=== PATIENT | male | born 1960 | race Caucasian/White ===

== ENCOUNTER 2020-08-28 10:04 | Emergency (ER) | payer SELFPAY ==
[~2020-08-28] VITALS: Ht 172.7 cm; Wt 68.0 kg
[2020-08-28 10:04] VITALS: BP_SYST 126
[~2020-08-28 10:04] MED LIST: FOLI-43 PO; FOLI0.8C PO; LEVO500T89 PO; METR500T PO; MULT-1117 PO; THIA250T3 PO
[2020-08-28] MEDS ORDERED: CEPH250C PO (10:33)
[2020-08-28 10:42] VITALS: BP_SYST 125
== END 2020-08-28 10:42 | disposition home or self-care (01) ==
LOC: SED 10:04
DX: S50.312A Abrasion of left elbow, initial encounter (principal); L08.9 Local infection of the skin and subcutaneous tissue, unspecified; Z79.899 Other long term (current) drug therapy; Y04.0XXA Assault by unarmed brawl or fight, initial encounter; Y93.89 Activity, other specified; Y92.89 Other specified places as the place of occurrence of the external cause; Y99.8 Other external cause status
CPT/HCPCS: 99283

== ENCOUNTER 2020-09-25 00:22 | Emergency (ER) | payer SELFPAY ==
[~2020-09-25] VITALS: Ht 165.1 cm; Wt 59.0 kg
[~2020-09-25 00:22] MED LIST changes: +CEPH250C PO
[2020-09-25 00:36] VITALS: BP_SYST 129
[2020-09-25] MEDS ORDERED: CLINDAMYCIN 900 MG in D5W 100 ML IV ONE (01:00)
[2020-09-25] MEDS ORDERED: MORPHINE 4 MG INJ. 4 MG/ML VIAL IVP ONE (01:00)
[2020-09-25] MEDS ORDERED: ONDANSETRON HCL 4 MG/2 ML VIAL IVP ONE (01:00)
[2020-09-25] MEDS ORDERED: cefTRIAXone 2 GM VIAL ONE (01:25)
[2020-09-25] MEDS ORDERED: DIPH-TET-PERTUS Vaccine 0.5 ML VIAL (ADACEL) I.M. ONE ×2 (01:27→01:30)
[2020-09-25] MEDS ORDERED: CLINDAMYCIN 900 mg/50mL D5W 50 ML IV ONE ×2 (01:27→01:30)
[2020-09-25 01:41] LABS: CALCIUM 8.6 mg/dL (8.4-11.0); CREATININE 0.9 mg/dL (0.55-1.30); POTASSIUM 4.2 mmol/L (3.5-5.1)
[2020-09-25] MEDS ORDERED: NACL 0.9% 1,000 ML IV ONE (01:45)
[2020-09-25 01:47] LABS: ALBUMIN 2.8 g/dL (3.4-4.8); TOTAL BILIRUBIN 0.8 mg/dL (0.0-1.0)
[2020-09-25 01:58] LABS: BASOPHILS % (AUTO) 0.8 % (0.0-2.0); EOSINOPHILS # (AUTO) 0.1 K/uL (0.0-0.4); EOSINOPHILS % (AUTO) 1.8 % (0.0-4.0); HEMATOCRIT 47.1 % (36-54); HEMOGLOBIN 16.1 g/dL (14.0-18.0); LYMPHOCYTES # (AUTO) 1.8 K/uL (1.0-5.5); LYMPHOCYTES % (AUTO) 32.4 % (20.5-51.5); MEAN CORPUSCULAR HEMOGLOBIN 37 pg (27-31); MEAN CORPUSCULAR HGB CONC 34 % (32-36); MEAN CORPUSCULAR VOLUME 108 fL (79.0-98.0); MONOCYTES # (AUTO) 0.6 K/uL (0.0-1.0); MONOCYTES % (AUTO) 10.5 % (1.7-9.3); NEUTROPHILS % (AUTO) 54.5 % (40.0-70.0); PLATELET COUNT (AUTO) 192 K/uL (130-430); RED BLOOD CELL COUNT(AUTO) 4.35 MIL/uL (4.2-6.2); RED CELL DISTRIBUTION WIDTH 14.2 % (9.0-15.0); WHITE BLOOD COUNT (AUTO) 5.6 K/uL (4.8-10.8)
[2020-09-25] MEDS ORDERED: LIDOCAINE MPF 2% 5mL VIAL INJ ONE (02:15)
[2020-09-25] MEDS ORDERED: LIDOCAINE 1%, 20 ML MDV 20 ML ONE (02:17)
[2020-09-25] MEDS ORDERED: BACITRACIN 1 GM OINT TP ONE ×2 (02:40→03:00)
[2020-09-25] MEDS ORDERED: IBUP-1971 PO (02:58)
[2020-09-25] MEDS ORDERED: CLIN300C12 PO (02:58)
[2020-09-25] MEDS ORDERED: ACET1TAB23 PO (02:58)
[2020-09-25 03:20] VITALS: BP_SYST 129
== END 2020-09-25 03:20 | disposition home or self-care (01) ==
LOC: SED 00:22
DX: S67.191A Crushing injury of left index finger, initial encounter (principal); L03.012 Cellulitis of left finger; Z79.899 Other long term (current) drug therapy; X58.XXXA Exposure to other specified factors, initial encounter; Y93.89 Activity, other specified; Y92.89 Other specified places as the place of occurrence of the external cause; Y99.8 Other external cause status
CPT/HCPCS: 10060; 11760; 36415; 73140; 80053; 83605; 85025; 87040; 87070; 87186; 90471; 90715; 96365; 96367; 96375; 99285; J0696; J2001; J2270; J2405; J3490; 87075-TC; 99284

== ENCOUNTER 2021-08-15 20:57 | Emergency (ER) | payer SELFPAY ==
[~2021-08-15] VITALS: Ht 165.1 cm; Wt 65.8 kg
[~2021-08-15 20:57] MED LIST changes: +CLIN-142 PO; +IBUP-1971 PO; -LEVO500T89 PO; +LEVO500T90 PO
[2021-08-15 21:03] VITALS: BP_SYST 119
[2021-08-15] MEDS ORDERED: PROCHLORPERAZINE EDISYLATE 10 MG/2 ML VIAL IVP ONE (23:15)
[2021-08-15] MEDS ORDERED: MORPHINE 4 MG INJ. 4 MG/ML VIAL IVP ONE (23:15)
[2021-08-15] MEDS ORDERED: PANTOPRAZOLE SODIUM 40 MG/VIAL (PROTONIX) IVP ONE (23:15)
[2021-08-15] MEDS ORDERED: NACL 0.9% 500 ML IV ONE (23:15)
[2021-08-15 23:34] LABS: BASOPHILS % (AUTO) 0.8 % (0.0-2.0); EOSINOPHILS # (AUTO) 0.1 K/uL (0.0-0.4); EOSINOPHILS % (AUTO) 1.4 % (0.0-4.0); HEMOGLOBIN 14.9 g/dL (14.0-18.0); LYMPHOCYTES # (AUTO) 1.2 K/uL (1.0-5.5); MEAN CORPUSCULAR HEMOGLOBIN 38 pg (27-31); MEAN CORPUSCULAR HGB CONC 34 % (32-36); MEAN CORPUSCULAR VOLUME 111 fL (79.0-98.0); MONOCYTES # (AUTO) 0.5 K/uL (0.0-1.0); MONOCYTES % (AUTO) 9.9 % (1.7-9.3); NEUTROPHILS # (AUTO) 3.4 K/uL (1.8-7.7); NEUTROPHILS % (AUTO) 64.9 % (40.0-70.0); PLATELET COUNT (AUTO) 160 K/uL (130-430); RED BLOOD CELL COUNT(AUTO) 3.95 MIL/uL (4.2-6.2); RED CELL DISTRIBUTION WIDTH 14.3 % (9.0-15.0); WHITE BLOOD COUNT (AUTO) 5.2 K/uL (4.8-10.8)
[2021-08-15 23:39] LABS: CALCIUM 7.7 mg/dL (8.4-11.0); CREATININE 0.73 mg/dL (0.55-1.30); POTASSIUM 3.8 mmol/L (3.5-5.1)
[2021-08-15 23:45] LABS: ALBUMIN 2.4 g/dL (3.4-4.8); TOTAL BILIRUBIN 1.3 mg/dL (0.0-1.0)
[2021-08-16] MEDS ORDERED: SPIRONOLACTONE 25 MG TABLET (ALDACTONE) PO ONE (02:00)
[2021-08-16] MEDS ORDERED: PANT20TA2 PO (02:07)
[2021-08-16] MEDS ORDERED: SPIR25TA PO (02:07)
[2021-08-16] MEDS ORDERED: METO5TAB86 PO (02:07)
[2021-08-16 02:27] VITALS: BP_SYST 128
== END 2021-08-16 02:21 | disposition home or self-care (01) ==
LOC: SED 20:57
DX: R18.8 Other ascites (principal); K72.90 Hepatic failure, unspecified without coma; F10.20 Alcohol dependence, uncomplicated; R10.13 Epigastric pain; Z79.899 Other long term (current) drug therapy; Y90.9 Presence of alcohol in blood, level not specified
CPT/HCPCS: 36415; 80053; 83690; 85025; 96361; 96374; 96375; 99284; C9113; J0780; J2270; J7030

== ENCOUNTER 2022-03-29 13:02 | Inpatient (IN) | payer OTHER ==
[~2022-03-29] VITALS: Ht 172.7 cm; Wt 70.3 kg
[~2022-03-29 13:02] MED LIST changes: +LEVO-62 PO; -LEVO500T90 PO; +METO5TAB86 PO; +PANT20TA2 PO; +SPIR25TA PO
[2022-03-29 13:11] VITALS: BP_SYST 107
--- NOTE | 2022-03-29 13:14 | NUR ---
Placed in room 06 . Placed on rolls mill operator, blood pressure machine and pulse oximeter. To gown for exam. Side rails up. Report given to LUIS CABRERA
--- NOTE | 2022-03-29 13:23 | NUR ---
61 YEARS OLD MALE PRESENTS TO ER C/O ABD PAIN ASCITES HISTORY OF ETOH.
[2022-03-29] MEDS ORDERED: MORPHINE 4 MG INJ. 4 MG/ML VIAL IVP ONE (16:15)
--- NOTE | 2022-03-29 16:38 | NUR ---
TALKED TO DR HACKETT NEW ORDER OBTAINED.
[2022-03-29 16:40] LABS: BASOPHILS % (AUTO) 0.3 % (0.0-2.0); EOSINOPHILS # (AUTO) 0.1 K/uL (0.0-0.4); EOSINOPHILS % (AUTO) 0.7 % (0.0-4.0); HEMATOCRIT 41.8 % (36-54); HEMOGLOBIN 14.5 g/dL (14.0-18.0); LYMPHOCYTES # (AUTO) 1.3 K/uL (1.0-5.5); LYMPHOCYTES % (AUTO) 18.4 % (20.5-51.5); MEAN CORPUSCULAR HEMOGLOBIN 36 pg (27-31); MEAN CORPUSCULAR HGB CONC 35 % (32-36); MEAN CORPUSCULAR VOLUME 103 fL (79.0-98.0); MONOCYTES # (AUTO) 0.9 K/uL (0.0-1.0); NEUTROPHILS # (AUTO) 4.9 K/uL (1.8-7.7); NEUTROPHILS % (AUTO) 68.6 % (40.0-70.0); PLATELET COUNT (AUTO) 148 K/uL (130-430); RED BLOOD CELL COUNT(AUTO) 4.08 MIL/uL (4.2-6.2); RED CELL DISTRIBUTION WIDTH 14.7 % (9.0-15.0); WHITE BLOOD COUNT (AUTO) 7.1 K/uL (4.8-10.8)
[2022-03-29] MEDS ORDERED: ALBMDI INH (16:47)
[2022-03-29] MEDS ORDERED: ONDA-8 TL (16:47)
[2022-03-29] MEDS ORDERED: VITD2000 PO (16:47)
[2022-03-29] MEDS ORDERED: FURO-149 PO (16:47)
[2022-03-29 16:49] LABS: CALCIUM 8.3 mg/dL (8.4-11.0); CREATININE 0.88 mg/dL (0.55-1.30)
[2022-03-29] MEDS ORDERED: FAMO-132 PO (16:49)
[2022-03-29 16:55] LABS: ALBUMIN 2.1 g/dL (3.4-4.8); INR 1.3 (0.80-1.20); PROTHROMBIN TIME 13.3 SECS (9.5-12.5); TOTAL BILIRUBIN 3.8 mg/dL (0.0-1.0)
--- NOTE | 2022-03-29 18:18 | NUR ---
Admit bed requested Patient will be admitted to care of . Admitted to unit. Diagnosis Inpatient (Yes or No) Observation (Yes or No) n Orientation concerns or request close to nursing station (Yes or No) Covid Status On vent or bipap Isolation requirements Needs a sitter From Home (Yes or if No enter name of facility) Requires Dialysis (Yes or No) Med Rec Completed (Yes of No)
--- NOTE | 2022-03-29 19:06 | NUR ---
PATIENT RESTING NO ACUTE CHANGES WILL TRANSFER TO [facility] AT SHIFT CHANGE.
--- NOTE | 2022-03-29 19:16 | NUR ---
PT PLACED ON 2LPM 02 AFTER SHOWING 02SAT OF 88% ON NASAL CANNULA
--- NOTE | 2022-03-29 19:40 | NUR ---
Received report from LUIS Artis; assuming care at this time.
--- NOTE | 2022-03-29 19:45 | NUR ---
Patient A/Ox4, VSS, ambulatory, resp even and unlabored. Patient lying in bed with safety precautions in place and connected to monitor. Patient's at bedside. Nad noted at this time.
--- NOTE | 2022-03-29 20:30 | NUR ---
ADMISSION NOTE Received patient from ER via gurney. Patient admitted with diagnosis of ASCITES, CIRRHOSIS. Patient is awake, alert, oriented X 4. Patient oriented to hospital room, call light, toileting, pain management and safety-teach back done. Patient informed that that their room number is 118B. Personal belongings checked and Belongings List documented. Call light within reach.
--- NOTE | 2022-03-29 20:30 | NUR ---
Patient will be admitted to care of [facility]. Admitted to Med Surg unit. Will go to room 118 B. Belongings list completed. Complete and up to date summary report printed. SBAR report given to LUIS Hess at bedside with opportunity for questions.
[2022-03-29 20:59] VITALS: BP_SYST 116
[2022-03-29] MEDS: NORMAL SALINE 5 ML DISP.SYRIN IVF SCH (21:45)
--- NOTE | 2022-03-29 22:34 | NUR ---
CONSULTATION PAGED/CALLED Reason for Consultation: CIRRHOSIS Person Who was Notified: BALDOMERO Consulting Physician: IMANI Electrocardiographic Technician Specialty: Ordering Physician: ROXANN
--- NOTE | 2022-03-30 | NUR ---
Patient was provided education that he was to be NPO till after scheduled procedure. Patient was able to verbalized understanding.
[2022-03-30 01:30] VITALS: BP_SYST 103
--- NOTE | 2022-03-30 06:53 | NUR ---
Patient is in bed resting no s/s of distress is noted at this time. Chest rise is even with auditory wheezing can be herd and patient is easily aroused, able to make needs known, with call light within reach. Patient remains NPO, is stable and all current shift needs have been met. Will differ further care to AM shift nurse for continuity of care.
[2022-03-30 07:05] LABS: BASOPHILS % (AUTO) 0.4 % (0.0-2.0); EOSINOPHILS # (AUTO) 0.1 K/uL (0.0-0.4); EOSINOPHILS % (AUTO) 1.7 % (0.0-4.0); HEMATOCRIT 38.2 % (36-54); HEMOGLOBIN 13.2 g/dL (14.0-18.0); LYMPHOCYTES # (AUTO) 1.5 K/uL (1.0-5.5); LYMPHOCYTES % (AUTO) 21.8 % (20.5-51.5); MEAN CORPUSCULAR HEMOGLOBIN 36 pg (27-31); MEAN CORPUSCULAR HGB CONC 35 % (32-36); MEAN CORPUSCULAR VOLUME 103 fL (79.0-98.0); MONOCYTES % (AUTO) 15.3 % (1.7-9.3); NEUTROPHILS # (AUTO) 4.1 K/uL (1.8-7.7); NEUTROPHILS % (AUTO) 60.8 % (40.0-70.0); PLATELET COUNT (AUTO) 139 K/uL (130-430); RED CELL DISTRIBUTION WIDTH 14.5 % (9.0-15.0); WHITE BLOOD COUNT (AUTO) 6.7 K/uL (4.8-10.8)
[2022-03-30 07:13] LABS: CALCIUM 7.7 mg/dL (8.4-11.0); CREATININE 0.93 mg/dL (0.55-1.30)
[2022-03-30 07:18] LABS: ALBUMIN 1.9 g/dL (3.4-4.8); TOTAL BILIRUBIN 2.4 mg/dL (0.0-1.0)
[2022-03-30 07:20] LABS: INR 1.3 (0.80-1.20); PROTHROMBIN TIME 12.9 SECS (9.5-12.5)
--- NOTE | 2022-03-30 07:20 | NUR ---
OPENING NOTE PT IN BED, RESTING. DENIES ANY ACUTE DISTRESS. IV SITE REMAIN PATENT AND INTACT. PT IS ON 2L O2 VIA NC, WHEEZING NOTED, DENIES SOB. ENCOURAGED PT TO USE CALL LIGHT FOR ASSISTANCE. BED IS LOCKED AND AT LOW POSITION. WILL CONT TO MONITOR.
[2022-03-30 08:00] VITALS: BP_SYST 115
[2022-03-30] MEDS ORDERED: SPIRONOLACTONE 50 MG TABLET (ALDACTONE) PO ONE (10:00)
[2022-03-30] MEDS ORDERED: FUROSEMIDE 20 MG TABLET PO ONE (10:00)
--- NOTE | 2022-03-30 11:30 | NUR ---
NOTES; CANCELLED PARACENTESIS BECAUSE " TOO SMALL FOR PARACENTESIS" AFTER ABDOMINAL US.
--- NOTE | 2022-03-30 12:30 | NUR ---
PAGED DR. DIALLO
--- NOTE | 2022-03-30 12:46 | NUR ---
PAGED DR. HACKETT.
--- NOTE | 2022-03-30 13:00 | NUR ---
NOTES; MADE MADE AWARE OF CANCELLING PARACENTESIS. RESUME PREVIOUS DIET PER .
[2022-03-30] MEDS ORDERED: IPRATROPIUM/ALBUTEROL SULFATE 3 ML AMPUL.NEB (DUONEB) INH PRN (14:45)
[2022-03-30] MEDS ORDERED: CHOLECALCIFEROL (VITAMIN D3) 2,000 UNIT TABLET PO SCH (15:00)
[2022-03-30] MEDS ORDERED: POTASSIUM CHLORIDE IV ONE (15:15)
[2022-03-30] MEDS ORDERED: LIDOCAINE JECT IV ONE (15:15)
[2022-03-30] MEDS ORDERED: VITAMIN D3 50000 UNIT PO SCH (15:15)
[2022-03-30] MEDS ORDERED: NS IV ONE (15:15)
[2022-03-30 16:03] LABS: BASOPHILS % (AUTO) 0.5 % (0.0-2.0); EOSINOPHILS # (AUTO) 0.1 K/uL (0.0-0.4); EOSINOPHILS % (AUTO) 1.3 % (0.0-4.0); HEMATOCRIT 37.8 % (36-54); HEMOGLOBIN 12.9 g/dL (14.0-18.0); LYMPHOCYTES # (AUTO) 1.2 K/uL (1.0-5.5); LYMPHOCYTES % (AUTO) 18.2 % (20.5-51.5); MEAN CORPUSCULAR HEMOGLOBIN 35 pg (27-31); MEAN CORPUSCULAR HGB CONC 34 % (32-36); MEAN CORPUSCULAR VOLUME 103 fL (79.0-98.0); MONOCYTES # (AUTO) 0.9 K/uL (0.0-1.0); MONOCYTES % (AUTO) 13.8 % (1.7-9.3); NEUTROPHILS # (AUTO) 4.3 K/uL (1.8-7.7); NEUTROPHILS % (AUTO) 66.2 % (40.0-70.0); PLATELET COUNT (AUTO) 134 K/uL (130-430); RED BLOOD CELL COUNT(AUTO) 3.68 MIL/uL (4.2-6.2); RED CELL DISTRIBUTION WIDTH 14.7 % (9.0-15.0); WHITE BLOOD COUNT (AUTO) 6.5 K/uL (4.8-10.8)
[2022-03-30 16:09] LABS: CALCIUM 8.1 mg/dL (8.4-11.0); CREATININE 0.93 mg/dL (0.55-1.30)
--- NOTE | 2022-03-30 16:40 | NUR ---
MARJAN GUADALUPE,STRAW HAT MACHINE OPERATOR FOR PAIN MEDICATION, RECEIVED NEW ORDER.
[2022-03-30] MEDS: NORMAL SALINE 5 ML DISP.SYRIN IVF SCH ×2 (16:48→20:56)
[2022-03-30] MEDS: HYDROcodone/ACETAMIN 5-325 MG TAB (NORCO/ VICODIN) PO PRN (16:51)
--- NOTE | 2022-03-30 17:20 | NUR ---
COLLECTED URINE CULTURE, SENT TO LAB
[2022-03-30 17:42] LABS: BILIRUBIN,URINE 2+ (NEGATIVE); BLOOD, URINE NEGATIVE (NEGATIVE); CLARITY/URINE CLEAR (CLEAR); COLOR,URINE BROWN (YELLOW); GLUCOSE,URINE TRACE (NEGATIVE); KETONES,URINE TRACE (NEGATIVE); LEUKOCYTE ESTERASE ,URINE NEGATIVE (NEGATIVE); NITRITE, URINE POSITIVE (NEGATIVE); PH,URINE 5.5 (5.0-8.0); PROTEIN URINE TRACE (NEGATIVE)
[2022-03-30 17:43] LABS: UROBILINOGEN,URINE >=8 (0.2-1.0)
[2022-03-30 17:56] LABS: BACTERIA,URINE RARE /HPF (None Seen); MUCUS,URINE 1+ /LPF (None Seen); RBC,URINE 0-3 /HPF (0-3)
--- NOTE | 2022-03-30 19:00 | NUR ---
CLOSING NOTE PT IN BED, WATCHING TV WITH HIS SIGNIFICANT OTHER. DENIES ANY ACUTE DISTRESS. IV RUNNING WITH SITE REMAIN PATENT AND INTACT. PT IS ON 2L O2 VIA NC, WHEEZING NOTED, DENIES SOB. ENCOURAGED PT TO USE CALL LIGHT FOR ASSISTANCE. BED IS LOCKED AND AT LOW POSITION. ENDORSED CARE TO ORACLE EBS DEVELOPER RN.
[2022-03-30 20:00] VITALS: BP_SYST 107
[2022-03-30] MEDS: METHYLPREDNISOLONE SOD SUCC 40 MG/ML VIAL IVP SCH (20:56)
[2022-03-31 01:30] VITALS: BP_SYST 99
--- NOTE | 2022-03-31 03:14 | NUR ---
2000 OPENING NOTE: Patient received no s/s of distress is noted at this time, chest rise is even and unlabored. Patient is AA&Ox4 able to make needs known with significant other at bedside with call light within reach. Will resume care and continue to monitor throughout the shift. 2200 Patient was assessed and received all scheduled 2100 medications. Patient denies any pain or distress at this time. Patient remains on 2L via NC and is tolerating it well at this time. PIV is noted and is infusing KCL as ordered for a x1 dose. Safety measures are in place as per protocol and patient has call light within reach. Will continue to monitor. 0000 Patient is in bed resting no s/s of distress is noted at this time. Patient is easily aroused. Will continue to monitor.
[2022-03-31] MEDS: NORMAL SALINE 5 ML DISP.SYRIN IVF SCH ×3 (05:22→21:43)
[2022-03-31] MEDS: METHYLPREDNISOLONE SOD SUCC 40 MG/ML VIAL IVP SCH ×3 (05:22→21:35)
--- NOTE | 2022-03-31 07:30 | NUR ---
OPENING NOTE PT IN BED,RESTING WATCHING TV. DENIES ANY PAIN OR DISCOMFORT NOTED. IV SITE REMAIN INTACT.NO S/S OF INFILTRATION OR INFECTION NOTED. BED IS LOCKED AND AT LOW POSITION. ENCOURAGED PT TO USE CALL LIGHT FOR ASSISTANCE. SAFETY PRECAUTION IN PLACED.WILL CONT TO MONITOR
[2022-03-31 08:00] VITALS: BP_SYST 111
[2022-03-31 08:06] LABS: HEPATITIS A AB, IgM Negative (Negative); HEPATITIS B CORE AB, IgM Negative (Negative); HEPATITIS B SURFACE AG Negative (Negative)
[2022-03-31] MEDS: SPIRONOLACTONE 50 MG TABLET (ALDACTONE) PO SCH (08:29)
[2022-03-31] MEDS: FUROSEMIDE 20 MG TABLET PO SCH (08:29)
[2022-03-31] MEDS ORDERED: FUROSEMIDE 40 MG TABLET PO SCH (09:00)
[2022-03-31 09:06] LABS: ALBUMIN 2.1 g/dL (3.4-4.8); CALCIUM 8.3 mg/dL (8.4-11.0); CREATININE 0.96 mg/dL (0.55-1.30); TOTAL BILIRUBIN 2.6 mg/dL (0.0-1.0)
[2022-03-31] MEDS: HYDROcodone/ACETAMIN 5-325 MG TAB (NORCO/ VICODIN) PO PRN ×2 (10:59→21:43)
[2022-03-31 12:00] VITALS: BP_SYST 112
--- NOTE | 2022-03-31 12:00 | NUR ---
NOTES; PT SAID HE COULD NOT GO TO SLEEP WELL LAST NIGHT, REQUESTING MEDICATION FOR SLEEPING. WILL LET KNOW
--- NOTE | 2022-03-31 13:49 | NUR ---
SPOKE WITH DR. HACKETT, RECEIVED NEW ORDER FOR SLEEPING
[2022-03-31 16:00] VITALS: BP_SYST 114
--- NOTE | 2022-03-31 16:16 | NUR ---
CONSULTATION PAGED/CALLED Reason for Consultation: LIVER MASS Person Who was Notified: JONES Consulting Physician: DR. AGUIRRE Executive Cyber Leader Specialty: HEMATOLOGY Ordering Physician: DR. HACKETT
--- NOTE | 2022-03-31 16:30 | NUR ---
NOTES; PT DENIES ANY ACUTE DISCOMFORT. SIGNIFICANT OTHER AT BEDSIDE. BED IS LOCKED AND AT LOW POSITION. SAFETY PRECAUTION IN PLACED. WILL CONT TO MONITOR
--- NOTE | 2022-03-31 18:30 | NUR ---
CLOSING NOTE PT IN BED,EATING DINNER. DENIES ANY PAIN OR DISCOMFORT NOTED. IV SITE REMAIN INTACT.NO S/S OF INFILTRATION OR INFECTION NOTED. BED IS LOCKED AND AT LOW POSITION. SIGNIFICANT OTHER AT BEDSIDE. ENCOURAGED PT TO USE CALL LIGHT FOR ASSISTANCE. SAFETY PRECAUTION IN PLACED.WILL CONT ENDORSE CARE TO GOLF CLUB HEAD FORMER RN.
[2022-03-31 20:00] VITALS: BP_SYST 128
[2022-03-31] MEDS: TEMAZEPAM 7.5 MG CAPSULE PO SCH (21:43)
--- NOTE | 2022-04-01 01:53 | NUR ---
1999 OPENING NOTES: Patient received from AM shift nurse. Patient is AA&Ox4 able to make needs known, denies any pain or distress at this time, and has call light within reach. Chest rise is even and unlabored on 2L via NC. Patient is stable at this time and safety measures are in place. Will resume care and continue to monitor throughout the shift. 2200 Patient was assessed as and received scheduled medications and PRN as requested. Patient is now resting with family at bedside. No s/s of distress is noted. Will continue to monitor. 0000 Patient is resting at this time no s/s of distress is noted at this time. Will continue to monitor.
[2022-04-01 02:00] VITALS: BP_SYST 116
[2022-04-01] MEDS: NORMAL SALINE 5 ML DISP.SYRIN IVF SCH ×3 (05:36→21:34)
[2022-04-01] MEDS: METHYLPREDNISOLONE SOD SUCC 40 MG/ML VIAL IVP SCH ×3 (05:36→21:33)
--- NOTE | 2022-04-01 06:36 | NUR ---
CLOSING NOTES: Patient is in bed resting no s/s of distress is noted at this time. Chest rise is even and unlabored on 2L via NC. Patient is able to communicate needs and has call light within reach. Patient received am Solu-medrol as ordered and is tolerating it well. All current shift needs have been met at this time, patient is currently stable and safety measures remain in place as per protocol. will differ care to AM shift nurse for continuity of care.
[2022-04-01 08:00] VITALS: BP_SYST 151
[2022-04-01] MEDS: SPIRONOLACTONE 50 MG TABLET (ALDACTONE) PO SCH (08:52)
[2022-04-01] MEDS: FUROSEMIDE 20 MG TABLET PO SCH (08:53)
[2022-04-01] MEDS ORDERED: GADOTERATE MEGLUMINE 7.5 MMOL/15 ML VIAL IV ONE (11:24)
[2022-04-01] MEDS ORDERED: LORazepam 2 MG/ML VIAL IVP ONE (12:00)
[2022-04-01] MEDS ORDERED: NALOXONE HCL 0.4 MG/ML AMP (NARCAN) IVP PRN ×2 (13:30)
[2022-04-01] MEDS ORDERED: MORPHINE 2 MG/ML INJ. SYRINGE IVP PRN (13:30)
--- NOTE | 2022-04-01 19:37 | NUR ---
OPENING NOTES: Patient received from AM shift nurse Mendez. Patient is AA&Ox4 able to make needs known, chest rise is even and unlabored on 2L O2 via NC. Patient has family at bedside and denies pain at this time. Patient is stable at this time and safety measures are in place as per protocol. Will resume care and continue to monitor throughout the shift.
[2022-04-01 20:00] VITALS: BP_SYST 115
--- NOTE | 2022-04-01 21:00 | NUR ---
pt is eating 100 percent. still confused. bed lowered
[2022-04-01] MEDS: TEMAZEPAM 7.5 MG CAPSULE PO SCH (21:34)
[2022-04-02 00:33] VITALS: BP_SYST 121
[2022-04-02] MEDS: NORMAL SALINE 5 ML DISP.SYRIN IVF SCH ×3 (05:23→21:33)
[2022-04-02] MEDS: METHYLPREDNISOLONE SOD SUCC 40 MG/ML VIAL IVP SCH ×3 (05:23→21:32)
--- NOTE | 2022-04-02 06:28 | NUR ---
CLOSING NOTES: Patient is in bed resting no s/s of distress is noted at this time. Chest rise is even and unlabored is able to communicate needs and has call light within reach. All current shift needs have been met, patient is stable, and safety measures are in place as per protocol. Will differ care to AM shift nurse for continuity of care.
[2022-04-02 07:46] VITALS: BP_SYST 118
[2022-04-02] MEDS: FUROSEMIDE 20 MG TABLET PO SCH (09:34)
[2022-04-02] MEDS: SPIRONOLACTONE 50 MG TABLET (ALDACTONE) PO SCH (09:34)
[2022-04-02] MEDS: ONDANSETRON HCL 4 MG/2 ML VIAL IVP PRN (12:36)
[2022-04-02] MEDS: MORPHINE 2 MG/ML INJ. SYRINGE IVP PRN (14:22)
[2022-04-02 19:00] VITALS: BP_SYST 120
[2022-04-02 20:00] VITALS: BP_SYST 120
[2022-04-02] MEDS: TEMAZEPAM 7.5 MG CAPSULE PO SCH (21:32)
[2022-04-03] MEDS: METHYLPREDNISOLONE SOD SUCC 40 MG/ML VIAL IVP SCH ×3 (06:45→21:23)
[2022-04-03] MEDS: NORMAL SALINE 5 ML DISP.SYRIN IVF SCH ×3 (06:46→22:44)
--- NOTE | 2022-04-03 07:30 | NUR ---
rn opening note report was endorsed by night nurse. patient is awake and alert laying in bed. significant other is at bedside. patient educated process improvement consultant light for assistance. call light is with him no other needs at this time.
[2022-04-03 08:00] VITALS: BP_SYST 129
[2022-04-03] MEDS ORDERED: MIDAZOLAM HCL 5 MG/5 ML VIAL ONE (08:19)
[2022-04-03] MEDS ORDERED: fentaNYL CITRATE/PF 100 MCG/2 ML AMP ONE (08:19)
[2022-04-03] MEDS ORDERED: MEPERIDINE 100 MG INJ. 100 MG/ML VIAL ONE (08:19)
--- NOTE | 2022-04-03 08:40 | NUR ---
PATIENT TRANSFERRED FOR PROCEDURE
[2022-04-03] MEDS ORDERED: ONDANSETRON HCL 4 MG/2 ML VIAL ONE (08:53)
[2022-04-03] MEDS: FUROSEMIDE 20 MG TABLET PO SCH (11:19)
[2022-04-03] MEDS: SPIRONOLACTONE 50 MG TABLET (ALDACTONE) PO SCH (11:19)
--- NOTE | 2022-04-03 11:19 | NUR ---
MEDICATION PATIENTS SCHEDULED MEDICATION GIVEN PER ORDER. PATIENT JUST BACK TO ROOM.PATIENT HAS ONE ABDOMINAL DRESSING FROM BIOPSY WITH NO SIGNS OF ACTIVE BLEEDING. PATIENT AND SPOUSE EDUCATED LOOPER OPERATOR LIGHT FOR ASSISTANCE.NO OTHER NEEDS AT THIS TIME.
[2022-04-03 11:33] VITALS: BP_SYST 124
[2022-04-03] MEDS: MORPHINE 2 MG/ML INJ. SYRINGE IVP PRN (13:50)
--- NOTE | 2022-04-03 14:33 | NUR ---
MEDICATION PATIENTS SCHEDULED MEDICATION GIVEN PER ORDER.PATIENT HAS SIGNIFICANT OTHER AT BED SIDE.EDUCATED CROP FARM WORKERS LIGHT FOR ASSISTANCE.
[2022-04-03 14:55] LABS: BASOPHILS % (AUTO) 0.1 % (0.0-2.0); EOSINOPHILS % (AUTO) 0.1 % (0.0-4.0); HEMATOCRIT 39.8 % (36-54); HEMOGLOBIN 13.5 g/dL (14.0-18.0); LYMPHOCYTES # (AUTO) 0.7 K/uL (1.0-5.5); LYMPHOCYTES % (AUTO) 6.1 % (20.5-51.5); MEAN CORPUSCULAR HEMOGLOBIN 35 pg (27-31); MEAN CORPUSCULAR HGB CONC 34 % (32-36); MEAN CORPUSCULAR VOLUME 103 fL (79.0-98.0); MONOCYTES # (AUTO) 0.9 K/uL (0.0-1.0); MONOCYTES % (AUTO) 7.6 % (1.7-9.3); NEUTROPHILS # (AUTO) 10.2 K/uL (1.8-7.7); NEUTROPHILS % (AUTO) 86.1 % (40.0-70.0); PLATELET COUNT (AUTO) 169 K/uL (130-430); RED BLOOD CELL COUNT(AUTO) 3.87 MIL/uL (4.2-6.2); RED CELL DISTRIBUTION WIDTH 15.2 % (9.0-15.0); WHITE BLOOD COUNT (AUTO) 11.8 K/uL (4.8-10.8)
[2022-04-03 16:38] VITALS: BP_SYST 105
--- NOTE | 2022-04-03 18:58 | NUR ---
rn closing note Patient is awake and alert no signs of any distress breathing is equal and non labored. patient has family at bedside. patient has no complaints at this time.
--- NOTE | 2022-04-03 19:00 | NUR ---
pt awake and alert x 4. nasal canula 2 liter. ambulatory. urinal at the bed side. girlfriend is on the bedside.
--- NOTE | 2022-04-03 19:30 | NUR ---
patient family ( girlfriend ) told the nurse iv was leaking. nurse went to find out. cleaned up the patient. iv is potent and working
--- NOTE | 2022-04-03 19:30 | NUR ---
pt is wake and alert x 4, looks lethargy. pt is asking to get cleaned up. Addendum: 04/04/22 at 0345 by Evelyn Renee RN RN wrong patent
[2022-04-03 20:00] VITALS: BP_SYST 123
--- NOTE | 2022-04-03 20:00 | NUR ---
pt waiting the result from the dr. poole which he came and talk to patient about it. patient is clear to leave the hospital
--- NOTE | 2022-04-03 20:15 | NUR ---
pt get cleaned by retail loss prevention officer. She wanted to to eat. nurse put the tray on her direction Addendum: 04/04/22 at 0345 by Evelyn Renee RN RN wrong patient
[2022-04-03] MEDS: TEMAZEPAM 7.5 MG CAPSULE PO SCH (21:17)
[2022-04-04] VITALS: BP_SYST 113
--- NOTE | 2022-04-04 | NUR ---
pt is resting. no acute distress noted. bed lowered. side rail up
[2022-04-04] MEDS: METHYLPREDNISOLONE SOD SUCC 40 MG/ML VIAL IVP SCH ×2 (07:06→14:52)
[2022-04-04] MEDS: NORMAL SALINE 5 ML DISP.SYRIN IVF SCH ×2 (07:07→14:52)
--- NOTE | 2022-04-04 07:15 | NUR ---
OPENING NOTE Received report from Chase night warehouse manager RN. Upon entering room, patient is sleeping, eyes closed. No s/s of pain or discomfort at this time. IV site seems intact, clean, and dry. Saline locked. Call light within reach. Safety precautions observed.
[2022-04-04 08:00] VITALS: BP_SYST 108
[2022-04-04] MEDS: SPIRONOLACTONE 50 MG TABLET (ALDACTONE) PO SCH (10:10)
[2022-04-04] MEDS: FUROSEMIDE 20 MG TABLET PO SCH (10:11)
[2022-04-04] MEDS: ONDANSETRON HCL 4 MG/2 ML VIAL IVP PRN (10:16)
--- NOTE | 2022-04-04 11:30 | NUR ---
FAMILY AT BEDSIDE Girlfriend at bedside at this time.
[2022-04-04] MEDS: MORPHINE 2 MG/ML INJ. SYRINGE IVP PRN (12:53)
--- NOTE | 2022-04-04 15:35 | NUR ---
CALLED MD Spoke to Dr. Arce. He said patient to go home today as ordered.
[2022-04-04 15:50] VITALS: BP_SYST 103
[2022-04-04 16:00] VITALS: BP_SYST 108
--- NOTE | 2022-04-04 16:50 | NUR ---
D/C Patient Patient given medication reconciliation form and D/C instructions. Exit Care provided. Patient verbalized understanding. MD discussed with patient the results and treatment provided. Wheelchair to vehicle for discharge to home. Patient in stable condition, ID band removed. IV catheter removed, intact and dressing applied, no active bleeding. Medication reconciliation sheet given. Patient educated on pain management. All belongings sent with patient.
== END 2022-04-04 23:04 | disposition home or self-care (01) | DRG 280 ==
LOC: SED 13:02 → SMU 16:16
PROVIDERS: ADMIT Internal Medicine; ATTEND Internal Medicine
PROC: 0FB03ZX Excision of Liver, Percutaneous Approach, Diagnostic (ICD-10-PCS; principal; 2022-04-03)
DX: K70.31 Alcoholic cirrhosis of liver with ascites (principal); E43 Unspecified severe protein-calorie malnutrition; J44.1 Chronic obstructive pulmonary disease with (acute) exacerbation; R16.0 Hepatomegaly, not elsewhere classified; Z20.822 Contact with and (suspected) exposure to COVID-19; K76.0 Fatty (change of) liver, not elsewhere classified; Z79.1 Long term (current) use of non-steroidal anti-inflammatories (NSAID); Z79.899 Other long term (current) drug therapy
CPT/HCPCS: 36415; 74170-TC; 74183; 76376; 76705; 80048; 80053; 80074; 81000; 82105; 85025; 85610-TC; 85730-TC; 87086; 88307; 88313; 94760; 96374; 99285; A9575; J1030; J2060; J2175; J2250; J2270; J2405; J3010; J3480; J7030; J7050; Q9967